=== PATIENT | male | born 1945 | race African-American/Black ===

== ENCOUNTER 2022-06-03 16:52 | Inpatient (IN) | payer MEDICARE ==
[2022-06-03 23:13] VITALS: BMI 26.9
[2022-06-04] MEDS ORDERED: Sodium Chloride 0.65% Nasal 44 ML BOT R NARE PRN (00:09)
[2022-06-04 07:13] LABS: SARS-CoV-2 NAA Rapid Test Not Detected (NotDetected)
[2022-06-04] MEDS: Bacitracin 1 PK TOP SCH ×3 (08:53→21:23)
[2022-06-04] MEDS ORDERED: Amlodipine 5 MG TAB PO SCH (09:00)
[2022-06-04] MEDS ORDERED: Ezetimibe 10 MG TAB PO SCH (09:00)
[2022-06-04] MEDS ORDERED: Alogliptin 6.25 MG TAB PO SCH (09:00)
[2022-06-04] MEDS ORDERED: Allopurinol 100 MG TAB PO SCH (09:00)
[2022-06-04] MEDS ORDERED: Gabapentin 300 MG CAP PO SCH (09:00)
[2022-06-04 09:48] LABS: #Basophils 0.1 thou/uL (0.0-0.2); #Eosinphils 0.2 thou/uL (0.0-0.7); #Lymphocytes 1.6 thou/uL (1.20-3.40); #Monocytes 0.9 thou/uL (0.11-0.59); #Neutrophils 8.1 thou/uL (1.40-6.50); %Monocytes 7.8 % (0.0-10.0); %Neutrophils 74.1 % (42.0-75.0); Anisocytosis SLIGHT = 6-15 cells (100X) (0-5/hpf); Hemoglobin 7.4 g/dL (14.0-18.0); Hypochromia SLIGHT = 6-15 cells (100X) (0-5/hpf); MDiff Complete? YES; Mean Corpuscular HGB CONC 30.3 g/dL (32.0-36.0); Mean Corpuscular Hemoglobin 21.6 pg (27.0-31.0); Mean Corpuscular Volume 71.1 fL (78.0-98.0); Mean Platelet Volume 9.2 fL (7.4-10.4); Microcytosis SLIGHT = 6-15 cells (100X) (0-5/hpf); Ovalocytes SLIGHT = 2-5 cells (100X) (0-1/hpf); Platelet Count 265 thou/uL (130-400); Poikilocytosis SLIGHT = 6-15 cells (100X) (0-5/hpf); RBC Distribution Width 14.5 % (11.5-14.5); Red Blood Cell (RBC) Count 3.43 mill/uL (4.70-6.10); Schistocytes SLIGHT = 2-5 cells (100X) (0-1/hpf); White Blood Cell (WBC) Count 10.9 thou/uL (4.8-10.8)
[2022-06-04] MEDS ORDERED: Amoxicillin/Potassium Clav 875 MG TAB PER TUBE SCH (10:00)
[2022-06-04 10:04] LABS: Anion Gap 15 mmol/L (10-20); BUN (Urea Nitrogen) 26 mg/dL (8.4-25.7); Calc. Creatinine Clearance 46 mL/min (70-130); Calcium 9.5 mg/dL (7.8-10.44); Carbon Dioxide 31 mmol/L (23-31); Chloride 101 mmol/L (98-107); Estimated GFR 47; Glucose 195 mg/dL (83-110); Potassium 4.3 mmol/L (3.5-5.1); Sodium 143 mmol/L (136-145)
[2022-06-04] MEDS ORDERED: SODIUM BICARBONATE FS SCH ×2 (11:45→12:30)
[2022-06-04] MEDS ORDERED: SODIUM CHLORIDE FS SCH ×2 (11:45→12:30)
[2022-06-04] MEDS: Gabapentin 300 MG CAP PER TUBE SCH ×2 (15:31→21:24)
[2022-06-04] MEDS: Acetaminophen/Codeine 30-300mg Tablet PER TUBE PRN (21:22)
[2022-06-04] MEDS: Amoxicillin/Potassium Clav 875 MG TAB PER TUBE SCH (21:23)
[2022-06-04] MEDS: Enoxaparin Sodium 40 MG/0.4 ML SYRINGE SC SCH (21:23)
[2022-06-05] MEDS: Acetaminophen/Codeine 30-300mg Tablet PER TUBE PRN ×4 (09:39→21:59)
[2022-06-05] MEDS: Amlodipine 5 MG TAB PER TUBE SCH ×2 (09:44→10:11)
[2022-06-05] MEDS: Alogliptin 6.25 MG TAB PER TUBE SCH ×2 (09:44→11:06)
[2022-06-05] MEDS: Allopurinol 100 MG TAB PER TUBE SCH ×2 (09:45→10:28)
[2022-06-05] MEDS: Ezetimibe 10 MG TAB PER TUBE SCH ×2 (09:45→10:29)
[2022-06-05] MEDS: Aspirin Chewable 81 MG TAB PER TUBE SCH ×2 (09:45→10:28)
[2022-06-05] MEDS: Amoxicillin/Potassium Clav 875 MG TAB PER TUBE SCH ×3 (09:45→21:56)
[2022-06-05] MEDS: Bacitracin 1 PK TOP SCH ×3 (09:49→21:56)
[2022-06-05] MEDS: Gabapentin 300 MG CAP PER TUBE SCH ×3 (10:13→21:57)
[2022-06-05] MEDS ORDERED: Alogliptin 6.25 MG TAB PER TUBE SCH (10:15)
[2022-06-05] MEDS: RITONAVIR PO SCH (15:11)
[2022-06-05] MEDS: NIRMATRELVIR PO SCH (15:11)
[2022-06-05] MEDS: [UNRECOGNIZED DRUG - OTHER] PO SCH (15:11)
[2022-06-05] MEDS: Enoxaparin Sodium 40 MG/0.4 ML SYRINGE SC SCH (21:56)
[2022-06-06 08:02] LABS: Hemoglobin 7.2 g/dL (14.0-18.0); Mean Corpuscular HGB CONC 30.2 g/dL (32.0-36.0); Mean Corpuscular Hemoglobin 21.7 pg (27.0-31.0); Mean Corpuscular Volume 71.8 fL (78.0-98.0); Mean Platelet Volume 9.2 fL (7.4-10.4); Platelet Count 290 thou/uL (130-400); RBC Distribution Width 15.2 % (11.5-14.5); Red Blood Cell (RBC) Count 3.32 mill/uL (4.70-6.10); White Blood Cell (WBC) Count 9.4 thou/uL (4.8-10.8)
[2022-06-06] MEDS: Acetaminophen/Codeine 30-300mg Tablet PER TUBE PRN ×3 (09:58→21:50)
[2022-06-06] MEDS: Amoxicillin/Potassium Clav 875 MG TAB PER TUBE SCH ×2 (09:58→21:50)
[2022-06-06] MEDS: Alogliptin 6.25 MG TAB PER TUBE SCH (09:58)
[2022-06-06] MEDS: Gabapentin 300 MG CAP PER TUBE SCH ×3 (09:59→21:50)
[2022-06-06] MEDS: Allopurinol 100 MG TAB PER TUBE SCH (10:00)
[2022-06-06] MEDS: Ezetimibe 10 MG TAB PER TUBE SCH (10:01)
[2022-06-06] MEDS: Aspirin Chewable 81 MG TAB PER TUBE SCH (10:01)
[2022-06-06] MEDS: Bacitracin 1 PK TOP SCH ×3 (10:01→21:50)
[2022-06-06] MEDS: Enoxaparin Sodium 40 MG/0.4 ML SYRINGE SC SCH (21:50)
[2022-06-07] MEDS: Alogliptin 6.25 MG TAB PER TUBE SCH (09:28)
[2022-06-07] MEDS: Ezetimibe 10 MG TAB PER TUBE SCH (09:28)
[2022-06-07] MEDS: Aspirin Chewable 81 MG TAB PER TUBE SCH (09:28)
[2022-06-07] MEDS: Allopurinol 100 MG TAB PER TUBE SCH (09:29)
[2022-06-07] MEDS: Amoxicillin/Potassium Clav 875 MG TAB PER TUBE SCH ×2 (09:29→20:15)
[2022-06-07] MEDS: Gabapentin 300 MG CAP PER TUBE SCH ×3 (09:29→20:17)
[2022-06-07] MEDS: Amlodipine 5 MG TAB PER TUBE SCH (09:30)
[2022-06-07] MEDS: Bacitracin 1 PK TOP SCH ×3 (09:31→20:17)
[2022-06-07] MEDS: Acetaminophen/Codeine 30-300mg Tablet PER TUBE PRN (20:15)
[2022-06-07] MEDS: Enoxaparin Sodium 40 MG/0.4 ML SYRINGE SC SCH (20:15)
[2022-06-08] MEDS: Acetaminophen/Codeine 30-300mg Tablet PER TUBE PRN ×2 (08:22→21:09)
[2022-06-08] MEDS: Gabapentin 300 MG CAP PER TUBE SCH ×3 (08:30→21:11)
[2022-06-08] MEDS: Ezetimibe 10 MG TAB PER TUBE SCH (08:33)
[2022-06-08] MEDS: Amlodipine 5 MG TAB PER TUBE SCH (08:33)
[2022-06-08] MEDS: Allopurinol 100 MG TAB PER TUBE SCH (08:33)
[2022-06-08] MEDS: Aspirin Chewable 81 MG TAB PER TUBE SCH (08:33)
[2022-06-08] MEDS: Alogliptin 6.25 MG TAB PER TUBE SCH (08:33)
[2022-06-08] MEDS: Amoxicillin/Potassium Clav 875 MG TAB PER TUBE SCH ×2 (08:33→21:08)
[2022-06-08] MEDS: Bacitracin 1 PK TOP SCH ×3 (08:34→21:09)
[2022-06-08] MEDS ORDERED: Mag-Al Plus 1200 MG/1200 MG/120 MG/30 ML UDCUP PO PRN (15:28)
[2022-06-08] MEDS ORDERED: Mag-Al Plus 1200 MG/1200 MG/120 MG/30 ML UDCUP PER TUBE PRN (15:30)
[2022-06-08] MEDS: Enoxaparin Sodium 40 MG/0.4 ML SYRINGE SC SCH (21:07)
[2022-06-09] MEDS: Acetaminophen/Codeine 30-300mg Tablet PER TUBE PRN ×3 (02:05→22:10)
[2022-06-09 05:33] LABS: #Basophils 0.1 thou/uL (0.0-0.2); #Eosinphils 0.1 thou/uL (0.0-0.7); #Neutrophils 8.9 thou/uL (1.40-6.50); %Basophils 0.9 % (0.0-1.0); %Eosinophils 1.1 % (0.0-10.0); %Lymphocytes 16.6 % (21.0-51.0); %Monocytes 8.2 % (0.0-10.0); %Neutrophils 73.2 % (42.0-75.0); Hemoglobin 7.5 g/dL (14.0-18.0); Hypochromia SLIGHT = 6-15 cells (100X) (0-5/hpf); MDiff Complete? YES; Mean Corpuscular HGB CONC 30.8 g/dL (32.0-36.0); Mean Corpuscular Hemoglobin 21.6 pg (27.0-31.0); Mean Corpuscular Volume 70.1 fL (78.0-98.0); Mean Platelet Volume 8.4 fL (7.4-10.4); Microcytosis SLIGHT = 6-15 cells (100X) (0-5/hpf); Platelet Count 333 thou/uL (130-400); Polychromasia SLIGHT = 2-3 cells (100X) (0-2/hpf); RBC Distribution Width 15.3 % (11.5-14.5); Red Blood Cell (RBC) Count 3.48 mill/uL (4.70-6.10); White Blood Cell (WBC) Count 12.2 thou/uL (4.8-10.8)
[2022-06-09 05:45] LABS: Anion Gap 15 mmol/L (10-20); BUN (Urea Nitrogen) 30 mg/dL (8.4-25.7); Calc. Creatinine Clearance 50 mL/min (70-130); Calcium 9.6 mg/dL (7.8-10.44); Carbon Dioxide 28 mmol/L (23-31); Chloride 98 mmol/L (98-107); Estimated GFR 51; Glucose 149 mg/dL (83-110); Potassium 4.1 mmol/L (3.5-5.1); Sodium 137 mmol/L (136-145)
[2022-06-09] MEDS: Aspirin Chewable 81 MG TAB PER TUBE SCH (10:02)
[2022-06-09] MEDS: Bacitracin 1 PK TOP SCH ×3 (10:02→22:10)
[2022-06-09] MEDS: Amoxicillin/Potassium Clav 875 MG TAB PER TUBE SCH ×2 (10:03→22:11)
[2022-06-09] MEDS: Gabapentin 300 MG CAP PER TUBE SCH ×3 (10:03→22:11)
[2022-06-09] MEDS: Allopurinol 100 MG TAB PER TUBE SCH (10:03)
[2022-06-09] MEDS: Alogliptin 6.25 MG TAB PER TUBE SCH (10:04)
[2022-06-09] MEDS: Ezetimibe 10 MG TAB PER TUBE SCH (10:04)
[2022-06-09] MEDS: Amlodipine 5 MG TAB PER TUBE SCH (10:06)
[2022-06-09] MEDS ORDERED: Metoclopramide HCl 10 MG TAB PER TUBE SCH (11:30)
[2022-06-09] MEDS: Metoclopramide HCl 10 MG TAB PER TUBE SCH ×2 (12:16→17:11)
[2022-06-09] MEDS ORDERED: Sodium Bicarbonate Tab 325 MG TAB PER TUBE PRN (13:30)
[2022-06-09] MEDS ORDERED: Pancrelipase DR 12,000 1 CAP FS PRN (13:30)
[2022-06-09] MEDS: Enoxaparin Sodium 40 MG/0.4 ML SYRINGE SC SCH (22:12)
[2022-06-10] MEDS: Metoclopramide HCl 10 MG TAB PER TUBE SCH ×3 (01:13→12:00)
[2022-06-10] MEDS: Acetaminophen/Codeine 30-300mg Tablet PER TUBE PRN ×3 (08:41→21:37)
[2022-06-10] MEDS: Bacitracin 1 PK TOP SCH ×3 (08:42→21:28)
[2022-06-10] MEDS: Allopurinol 100 MG TAB PER TUBE SCH (08:45)
[2022-06-10] MEDS: Ezetimibe 10 MG TAB PER TUBE SCH (08:46)
[2022-06-10] MEDS: Alogliptin 6.25 MG TAB PER TUBE SCH (08:46)
[2022-06-10] MEDS: Aspirin Chewable 81 MG TAB PER TUBE SCH (08:46)
[2022-06-10] MEDS: Amoxicillin/Potassium Clav 875 MG TAB PER TUBE SCH (08:46)
[2022-06-10] MEDS: Gabapentin 300 MG CAP PER TUBE SCH ×3 (08:46→21:24)
[2022-06-10] MEDS: Metoclopramide 10 MG/10 ML UDCUP PER TUBE SCH ×2 (18:13→23:49)
[2022-06-10] MEDS ORDERED: Bisacodyl 10 MG SUPP PR PRN (18:16)
[2022-06-10] MEDS: Enoxaparin Sodium 40 MG/0.4 ML SYRINGE SC SCH (21:28)
[2022-06-10] MEDS ORDERED: Amoxicillin/Potassium Clav 875 MG TAB PER TUBE SCH (22:00)
[2022-06-10] MEDS ORDERED: Polyethylene Glycol 3350 17 GM Packet PO SCH (22:00)
[2022-06-11] MEDS: Metoclopramide 10 MG/10 ML UDCUP PER TUBE SCH ×3 (03:32→17:46)
[2022-06-11] MEDS: Acetaminophen/Codeine 30-300mg Tablet PER TUBE PRN ×3 (03:45→21:56)
[2022-06-11] MEDS: Ezetimibe 10 MG TAB PER TUBE SCH (05:44)
[2022-06-11] MEDS ORDERED: Alogliptin 6.25 MG TAB PER TUBE SCH ×2 (06:00→10:00)
[2022-06-11] MEDS ORDERED: Aspirin Chewable 81 MG TAB PER TUBE SCH ×2 (06:00→10:00)
[2022-06-11] MEDS ORDERED: Allopurinol 100 MG TAB PER TUBE SCH ×2 (06:00→10:00)
[2022-06-11] MEDS ORDERED: Polyethylene Glycol 3350 17 GM Packet PO SCH (10:00)
[2022-06-11] MEDS ORDERED: Ezetimibe 10 MG TAB PER TUBE SCH (10:00)
[2022-06-11] MEDS: Bacitracin 1 PK TOP SCH ×3 (10:01→21:36)
[2022-06-11] MEDS: Gabapentin 300 MG CAP PER TUBE SCH ×3 (10:02→21:34)
[2022-06-11] MEDS: Enoxaparin Sodium 40 MG/0.4 ML SYRINGE SC SCH (21:34)
[2022-06-12] MEDS: Metoclopramide 10 MG/10 ML UDCUP PER TUBE SCH ×2 (00:47→05:54)
[2022-06-12] MEDS: Ezetimibe 10 MG TAB PER TUBE SCH (05:55)
[2022-06-12] MEDS ORDERED: Mag-Al Plus 1200 MG/1200 MG/120 MG/30 ML UDCUP PO PRN (09:42)
[2022-06-12] MEDS: Gabapentin 300 MG CAP PO SCH ×3 (09:47→21:29)
[2022-06-12] MEDS: Bacitracin 1 PK TOP SCH ×3 (09:48→21:28)
[2022-06-12] MEDS ORDERED: Ezetimibe 10 MG TAB PER TUBE SCH (10:00)
[2022-06-12] MEDS ORDERED: Allopurinol 100 MG TAB PER TUBE SCH (10:00)
[2022-06-12] MEDS ORDERED: Alogliptin 6.25 MG TAB PER TUBE SCH (10:00)
[2022-06-12] MEDS ORDERED: Polyethylene Glycol 3350 17 GM Packet PO SCH (10:00)
[2022-06-12] MEDS ORDERED: Aspirin Chewable 81 MG TAB PER TUBE SCH (10:00)
[2022-06-12] MEDS ORDERED: Allopurinol 100 MG TAB PO SCH (10:00)
[2022-06-12] MEDS ORDERED: Ezetimibe 10 MG TAB PO SCH (10:00)
[2022-06-12] MEDS ORDERED: Polyethylene Glycol 3350 17 GM Packet PER TUBE SCH (10:00)
[2022-06-12] MEDS ORDERED: Alogliptin 6.25 MG TAB PO SCH (10:00)
[2022-06-12] MEDS ORDERED: Aspirin Chewable 81 MG TAB PO SCH (10:00)
[2022-06-12] MEDS: Metoclopramide 10 MG/10 ML UDCUP PO SCH ×2 (12:57→17:17)
[2022-06-12] MEDS: Acetaminophen/Codeine 30-300mg Tablet PO PRN ×2 (13:23→21:43)
[2022-06-12] MEDS: Enoxaparin Sodium 40 MG/0.4 ML SYRINGE SC SCH (21:28)
[2022-06-13] MEDS: Metoclopramide 10 MG/10 ML UDCUP PO SCH ×2 (00:07→05:42)
[2022-06-13] MEDS: Acetaminophen/Codeine 30-300mg Tablet PO PRN ×3 (05:51→20:27)
[2022-06-13] MEDS: Allopurinol 100 MG TAB PO SCH (08:18)
[2022-06-13] MEDS: Alogliptin 6.25 MG TAB PO SCH (08:18)
[2022-06-13] MEDS: Bacitracin 1 PK TOP SCH ×3 (08:19→20:26)
[2022-06-13] MEDS: Aspirin Chewable 81 MG TAB PO SCH (08:19)
[2022-06-13] MEDS: Polyethylene Glycol 3350 17 GM Packet PO SCH (08:19)
[2022-06-13] MEDS: Gabapentin 300 MG CAP PO SCH ×3 (08:19→20:26)
[2022-06-13] MEDS: Ezetimibe 10 MG TAB PO SCH (08:19)
[2022-06-13] MEDS: Enoxaparin Sodium 40 MG/0.4 ML SYRINGE SC SCH (20:27)
[2022-06-14] MEDS: Bacitracin 1 PK TOP SCH ×3 (08:37→21:14)
[2022-06-14] MEDS: Allopurinol 100 MG TAB PO SCH (08:38)
[2022-06-14] MEDS: Gabapentin 300 MG CAP PO SCH ×3 (08:38→21:13)
[2022-06-14] MEDS: Aspirin Chewable 81 MG TAB PO SCH (08:39)
[2022-06-14] MEDS: Ezetimibe 10 MG TAB PO SCH (08:39)
[2022-06-14] MEDS: Alogliptin 6.25 MG TAB PO SCH (08:40)
[2022-06-14] MEDS: Polyethylene Glycol 3350 17 GM Packet PO SCH (08:40)
[2022-06-14] MEDS: Acetaminophen/Codeine 30-300mg Tablet PO PRN ×3 (08:43→21:13)
[2022-06-14] MEDS: Enoxaparin Sodium 40 MG/0.4 ML SYRINGE SC SCH (21:14)
[2022-06-14] MEDS ORDERED: SODIUM BICARBONATE FS SCH ×2 (22:00→23:59)
[2022-06-14] MEDS ORDERED: SODIUM CHLORIDE FS SCH ×2 (22:00→23:59)
[2022-06-15] MEDS: Allopurinol 100 MG TAB PO SCH (08:19)
[2022-06-15] MEDS: Acetaminophen/Codeine 30-300mg Tablet PO PRN ×3 (08:19→19:27)
[2022-06-15] MEDS: Ezetimibe 10 MG TAB PO SCH (08:22)
[2022-06-15] MEDS: Aspirin Chewable 81 MG TAB PO SCH (08:22)
[2022-06-15] MEDS: Gabapentin 300 MG CAP PO SCH ×3 (08:22→22:59)
[2022-06-15] MEDS: Alogliptin 6.25 MG TAB PO SCH (08:23)
[2022-06-15] MEDS: Bacitracin 1 PK TOP SCH ×3 (08:23→22:58)
[2022-06-15] MEDS: Polyethylene Glycol 3350 17 GM Packet PO SCH (08:23)
[2022-06-15] MEDS: Ibuprofen 600 MG TAB PO PRN (17:33)
[2022-06-15] MEDS: Enoxaparin Sodium 40 MG/0.4 ML SYRINGE SC SCH (22:58)
[2022-06-16] MEDS: Acetaminophen/Codeine 30-300mg Tablet PO PRN ×4 (01:08→20:50)
[2022-06-16] MEDS: Gabapentin 300 MG CAP PO SCH ×3 (08:08→20:51)
[2022-06-16] MEDS: Alogliptin 6.25 MG TAB PO SCH (08:08)
[2022-06-16] MEDS: Allopurinol 100 MG TAB PO SCH (08:09)
[2022-06-16] MEDS: Aspirin Chewable 81 MG TAB PO SCH (08:09)
[2022-06-16] MEDS: Ezetimibe 10 MG TAB PO SCH (08:09)
[2022-06-16] MEDS: Bacitracin 1 PK TOP SCH ×3 (08:09→20:49)
[2022-06-16] MEDS: Polyethylene Glycol 3350 17 GM Packet PO SCH (08:17)
[2022-06-16 08:43] LABS: Hemoglobin 8.3 g/dL (14.0-18.0); Mean Corpuscular HGB CONC 29.3 g/dL (32.0-36.0); Mean Corpuscular Hemoglobin 21.6 pg (27.0-31.0); Mean Corpuscular Volume 73.7 fL (78.0-98.0); Mean Platelet Volume 6.9 fL (7.4-10.4); Platelet Count 375 thou/uL (130-400); RBC Distribution Width 15.9 % (11.5-14.5); Red Blood Cell (RBC) Count 3.86 mill/uL (4.70-6.10); White Blood Cell (WBC) Count 4.8 thou/uL (4.8-10.8)
[2022-06-16 08:55] LABS: Anion Gap 14 mmol/L (10-20); BUN (Urea Nitrogen) 25 mg/dL (8.4-25.7); Calc. Creatinine Clearance 47 mL/min (70-130); Calcium 9.9 mg/dL (7.8-10.44); Carbon Dioxide 28 mmol/L (23-31); Chloride 99 mmol/L (98-107); Estimated GFR 47; Glucose 126 mg/dL (83-110); Potassium 4.4 mmol/L (3.5-5.1); Sodium 137 mmol/L (136-145)
[2022-06-16] MEDS: Ibuprofen 600 MG TAB PO PRN (15:28)
[2022-06-16] MEDS: Enoxaparin Sodium 40 MG/0.4 ML SYRINGE SC SCH (20:49)
[2022-06-16] MEDS: Ibuprofen 600 MG TAB PO SCH (22:56)
[2022-06-17] MEDS: HYDROcodone/Acetaminophen 5/325 mg Tablet PO PRN (05:38)
[2022-06-17] MEDS: Ibuprofen 600 MG TAB PO SCH ×3 (05:40→21:34)
[2022-06-17] MEDS: Bacitracin 1 PK TOP SCH ×3 (09:04→20:25)
[2022-06-17] MEDS: Alogliptin 6.25 MG TAB PO SCH (09:04)
[2022-06-17] MEDS: Ezetimibe 10 MG TAB PO SCH (09:04)
[2022-06-17] MEDS: Polyethylene Glycol 3350 17 GM Packet PO SCH (09:04)
[2022-06-17] MEDS: Allopurinol 100 MG TAB PO SCH (09:04)
[2022-06-17] MEDS: Gabapentin 300 MG CAP PO SCH ×3 (09:04→20:18)
[2022-06-17] MEDS: Acetaminophen/Codeine 30-300mg Tablet PO PRN ×2 (12:27→20:16)
[2022-06-17] MEDS: Enoxaparin Sodium 40 MG/0.4 ML SYRINGE SC SCH (20:18)
[2022-06-18] MEDS: Ibuprofen 600 MG TAB PO SCH ×3 (05:10→20:57)
[2022-06-18] MEDS: Ezetimibe 10 MG TAB PO SCH (08:35)
[2022-06-18] MEDS: Gabapentin 300 MG CAP PO SCH ×3 (08:35→20:55)
[2022-06-18] MEDS: Allopurinol 100 MG TAB PO SCH (08:35)
[2022-06-18] MEDS: Alogliptin 6.25 MG TAB PO SCH (08:35)
[2022-06-18] MEDS: Polyethylene Glycol 3350 17 GM Packet PO SCH (08:36)
[2022-06-18] MEDS: Bacitracin 1 PK TOP SCH ×3 (08:36→20:55)
[2022-06-18] MEDS: Acetaminophen/Codeine 30-300mg Tablet PO PRN (10:13)
[2022-06-18] MEDS: HYDROcodone/Acetaminophen 5/325 mg Tablet PO PRN ×2 (12:00→19:17)
[2022-06-18] MEDS ORDERED: Acetaminophen 325 MG TAB PO PRN (12:20)
[2022-06-18] MEDS: Cephalexin 500 MG CAP PO SCH ×2 (13:03→19:15)
[2022-06-18] MEDS: Enoxaparin Sodium 40 MG/0.4 ML SYRINGE SC SCH (20:56)
[2022-06-19] MEDS: Cephalexin 500 MG CAP PO SCH ×4 (00:51→17:12)
[2022-06-19] MEDS: HYDROcodone/Acetaminophen 5/325 mg Tablet PO PRN ×3 (00:53→21:38)
[2022-06-19] MEDS: Ibuprofen 600 MG TAB PO SCH ×3 (05:52→21:36)
[2022-06-19] MEDS: Bacitracin 1 PK TOP SCH ×3 (08:06→21:36)
[2022-06-19] MEDS: Alogliptin 6.25 MG TAB PO SCH (08:06)
[2022-06-19] MEDS: Allopurinol 100 MG TAB PO SCH (08:08)
[2022-06-19] MEDS: Ezetimibe 10 MG TAB PO SCH (08:08)
[2022-06-19] MEDS: Gabapentin 300 MG CAP PO SCH ×3 (08:09→21:36)
[2022-06-19] MEDS: Polyethylene Glycol 3350 17 GM Packet PO SCH (08:10)
[2022-06-19] MEDS: Enoxaparin Sodium 40 MG/0.4 ML SYRINGE SC SCH (21:35)
[2022-06-20] MEDS: Cephalexin 500 MG CAP PO SCH ×5 (00:11→23:53)
[2022-06-20] MEDS: HYDROcodone/Acetaminophen 5/325 mg Tablet PO PRN ×4 (05:35→23:53)
[2022-06-20] MEDS: Ibuprofen 600 MG TAB PO SCH ×3 (05:36→21:54)
[2022-06-20] MEDS: Ezetimibe 10 MG TAB PO SCH (08:21)
[2022-06-20] MEDS: Alogliptin 6.25 MG TAB PO SCH (08:21)
[2022-06-20] MEDS: Bacitracin 1 PK TOP SCH ×3 (08:21→21:53)
[2022-06-20] MEDS: Gabapentin 300 MG CAP PO SCH ×3 (08:21→21:55)
[2022-06-20] MEDS: Allopurinol 100 MG TAB PO SCH (08:22)
[2022-06-20] MEDS: Polyethylene Glycol 3350 17 GM Packet PO SCH (08:23)
[2022-06-20] MEDS: Enoxaparin Sodium 40 MG/0.4 ML SYRINGE SC SCH (21:53)
[2022-06-21] MEDS: Cephalexin 500 MG CAP PO SCH ×3 (06:11→19:05)
[2022-06-21] MEDS: Ibuprofen 600 MG TAB PO SCH ×3 (06:12→23:58)
[2022-06-21] MEDS: HYDROcodone/Acetaminophen 5/325 mg Tablet PO PRN ×3 (06:13→19:29)
[2022-06-21] MEDS: Alogliptin 6.25 MG TAB PO SCH (08:32)
[2022-06-21] MEDS: Allopurinol 100 MG TAB PO SCH (08:33)
[2022-06-21] MEDS: Bacitracin 1 PK TOP SCH ×3 (08:33→20:03)
[2022-06-21] MEDS: Ezetimibe 10 MG TAB PO SCH (08:33)
[2022-06-21] MEDS: Gabapentin 300 MG CAP PO SCH ×3 (08:33→20:04)
[2022-06-21] MEDS: Polyethylene Glycol 3350 17 GM Packet PO SCH (08:33)
[2022-06-21] MEDS: Enoxaparin Sodium 40 MG/0.4 ML SYRINGE SC SCH (20:03)
[2022-06-22] MEDS: HYDROcodone/Acetaminophen 5/325 mg Tablet PO PRN ×2 (00:43→05:46)
[2022-06-22] MEDS: Cephalexin 500 MG CAP PO SCH ×3 (00:43→11:53)
[2022-06-22] MEDS: Ibuprofen 600 MG TAB PO SCH (05:45)
[2022-06-22 07:18] VITALS: BP 130/74; TEMP 97.8
[2022-06-22] MEDS: Alogliptin 6.25 MG TAB PO SCH (09:28)
[2022-06-22] MEDS: Allopurinol 100 MG TAB PO SCH (09:28)
[2022-06-22] MEDS: Polyethylene Glycol 3350 17 GM Packet PO SCH (09:28)
[2022-06-22] MEDS: Bacitracin 1 PK TOP SCH (09:28)
[2022-06-22] MEDS: Ezetimibe 10 MG TAB PO SCH (09:29)
[2022-06-22] MEDS: Gabapentin 300 MG CAP PO SCH (09:29)
[2022-06-22] MEDS ORDERED: FLU VACC QS2022-23(65YR UP)/PF 240 MCG/0.7 ML SYRINGE IM ONE (12:00)
== END 2022-06-22 11:57 | disposition home or self-care (01) | DRG 949 ==
LOC: MADMS 22:20
PROVIDERS: ADMIT Family Medicine; ATTEND Family Medicine
PROC: 3E0234Z Introduction of Serum, Toxoid and Vaccine into Muscle, Percutaneous Approach (ICD-10-PCS; principal; 2022-06-22)
DX: Z48.3 Aftercare following surgery for neoplasm (principal); L03.115 Cellulitis of right lower limb; T81.49XA Infection following a procedure, other surgical site, initial encounter; E78.5 Hyperlipidemia, unspecified; M10.9 Gout, unspecified; C03.1 Malignant neoplasm of lower gum; M19.90 Unspecified osteoarthritis, unspecified site; E11.610 Type 2 diabetes mellitus with diabetic neuropathic arthropathy; R13.10 Dysphagia, unspecified; K59.00 Constipation, unspecified; R47.1 Dysarthria and anarthria; R26.9 Unspecified abnormalities of gait and mobility; I12.9 Hypertensive chronic kidney disease with stage 1 through stage 4 chronic kidney disease, or unspecified chronic kidney disease; N18.30 Chronic kidney disease, stage 3 unspecified; D64.9 Anemia, unspecified; Z79.899 Other long term (current) drug therapy; Z90.89 Acquired absence of other organs; Z87.891 Personal history of nicotine dependence; Y83.6 Removal of other organ (partial) (total) as the cause of abnormal reaction of the patient, or of later complication, without mention of misadventure at the time of the procedure; Z23 Encounter for immunization
CPT/HCPCS: 36415; 36416; 80048; 85025; 85027; 87811; 90471; 90662; 97602; G0008; J1650; U0002